=== PATIENT | female | born 1960 | race Caucasian/White ===

== ENCOUNTER 2017-03-03 19:01 | Emergency (ER) | payer OTHER, MEDICARE ==
[~2017-03-03] VITALS: Ht 154.9 cm; Wt 74.8 kg
[~2017-03-03 19:01] MED LIST: ACETAMINOPHEN-1 EAC3 PO
--- NOTE | 2017-03-03 19:45 | ED HAND/WRIST INJURY COMPLAINT ---
History of Present Illness General Chief Complaint: Hand or Wrist Injury Stated Complaint: LFT HAND INJURY Source: patient, old records Exam Limitations: no limitations Vital Signs & Intake/Output Vital Signs & Intake/Output Vital Signs Date Time Temp Pulse Resp B/P B/P Pulse O2 O2 Flow FiO2 Mean Ox Delivery Rate 03/03 2012 Room Air 03/03 1911 98.7 70 20 138/85 97 Room Air Allergies Coded Allergies: NSAIDS (Non-Steroidal Anti-Inflamma (RASH, BODY SWELLING, CP 03/03/17) aspirin (RASH ALL OVER, JOINT SWELLING, CP 03/03/17) chlorhexidine (BODY SWELLING AND ITCHING ALL OVER 03/03/17) cyanocobalamin (vitamin B12) (ANAPHYLAXIS 03/03/17) fentanyl (TAKES VISION AWAY AND MAKES, SICK, INCOHERENT SPEECH 03/03/17) meperidine (From DEMEROL) (SEIZURES 03/03/17) tramadol (SEIZURES 03/03/17) Uncoded Allergies: STEROID (RASH ALL OVER, BODY SWELLING, CP 07/30/16) Reconcile Medications Acetaminophen With Codeine (Acetaminophen-Cod #3 Tablet) 1 EACH TABLET 1 TAB PO BID PAIN (Reported) Triage Note: TRIAGE: PT TO ER C/C PAIN TO L HAND S/P INJURY 2 WEEKS AGO. PAIN IS CONSTANT SINCE ONSET. STATES SHE INJURED IT WHEN SHE TRIPPED WHILE HOLDING STUFF AND LANDED ON OUTER ASPECT OF HAND/WRIST. HAS HX OF SURGERY TO SAME FOREARM. STATES SHE HAS INTERMITTENT BLEEDING UNDER THE SKIN WITH ACTIVITY. TAKES TYLENOL WITH CODEINE BID AT BASELINE, STATES THIS HAS HELPED THE PAIN A LITTLE BIT. Triage Nurses Notes Reviewed? yes HPI: 2 weeks ago patient states that she was carrying something in both her hand when she lost her balance and fell forward. Patient hit the dorsal aspect of her left hand into a door frame. Patient denies hitting her head. Patient states that she did not fall to the ground. Patient has been having pain to the dorsal aspect of her left hand since then. The pain increases with use. The pain radiates into her wrist. The pain is throbbing in nature. Patient states that her hand is ecchymotic. At its worse the pain is 8 out of 10. With rest the pain goes down the 4 out of 10. Past History Travel History Traveled to [place] past 21 day No Medical History Any Pertinent Medical History? 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 No Review of Systems Review of Systems Constitutional: Reports: no symptoms. Respiratory: Reports: no symptoms. Cardiovascular: Reports: no symptoms. GI: Reports: no symptoms. Musculoskeletal: Reports: see HPI, joint pain. Skin: Reports: see HPI. Neurological/Psychological: Reports: no symptoms. Immunologic/Allergic: Reports: no symptoms. Physical Exam Physical Exam General Appearance: well developed/nourished, alert, awake, mild distress Eyes: Bilateral: PERRL, EOMI. Neck: normal inspection, supple, full range of motion, no midline tenderness Cardiovascular/Respiratory: normal breath sounds, normal peripheral pulses, regular rate/rhythm, no respiratory distress Wrist Left: normal range of motion, normal inspection, tenderness Hand Left: bone tenderness, ecchymosis, swelling Hand Right: normal inspection, normal range of motion Neurologic/Tendon: normal sensation, normal motor functions, normal tendon functions Progress Differential Diagnosis: contusion, fracture, sprain Plan of Care: Orders Procedure Date/time Status Durable Medical Equipment 03/03 2033 Active Diagnostic Imaging: Viewed by Me: Radiology Read. Discussed w/RAD: Radiology Read. Radiology Impression: PATIENT: MATTY PRESENT AGE: 56 PATIENT ACCOUNT NO: [id number] : 60 LOCATION: [facility] ORDERING PHYSICIAN: SOHNNA TURNER MD SERVICE DATE: 03/03/17 EXAM TYPE: RAD - XRY-HAND, LEFT EXAMINATION: XR HAND, LEFT CLINICAL INFORMATION: Fall, pain COMPARISON: None TECHNIQUE: AP, lateral, and oblique views of the left hand. FINDINGS: The bones and soft tissues are normal. No fracture. Alignment is anatomic. Joint spaces are maintained. No erosions or soft tissue calcifications. IMPRESSION: Unremarkable left hand. DICTATED BY: ANJEL PONCE MD DATE/TIME DICTATED:03/03/172014 DIRECTOR OF CASINO MARKETING:ZAMZAM DATE/TIME TRANSCRIBED:03/03/172014 CONFIDENTIAL, DO NOT COPY WITHOUT APPROPRIATE AUTHORIZATION. <Electronically signed in Other Vendor System> SIGNED BY: ANJEL PONCE MD 03/03/172023 Departure Departure Disposition: HOME OR SELF CARE Condition: Stable Clinical Impression Primary Impression: Hand contusion Qualifiers: Encounter type: initial encounter Laterality: left Qualified Code: S60.222A - Contusion of left hand, initial encounter Referrals: JEN QUIGLEY,CHERELLE Benson (PCP/Family) AMANDA REYNA MD Additional Instructions: WEAR SPLINT FOR COMFORT RETURN IF SYMPTOMS WORSEN OR FOR ANY CONCERNS FOLLOW UP WITH ORTHOPEDICS Departure Forms: Customer Survey General Discharge Information Procedures Splinting Location: LEFT WIRST/HAND Manual Alignment Performed: No Pre-Made Type: velcro Splint: wrist Splint Applied By: splint applied by other Pre-Proc Neuro Vasc Exam: normal Post-Proc Neuro Vasc Exam: normal
--- NOTE | 2017-03-03 20:24 | RADIOLOGY REPORT ---
EXAMINATION: XR HAND, LEFT CLINICAL INFORMATION: Fall, pain COMPARISON: None TECHNIQUE: AP, lateral, and oblique views of the left hand. FINDINGS: The bones and soft tissues are normal. No fracture. Alignment is anatomic. Joint spaces are maintained. No erosions or soft tissue calcifications. IMPRESSION: Unremarkable left hand.
[2017-03-03 20:47] VITALS: BP 128/78
== END 2017-03-03 20:47 ==
LOC: ERH 19:01
DX: S60.222A Contusion of left hand, initial encounter (principal); W19.XXXA Unspecified fall, initial encounter; Y93.89 Activity, other specified; Y92.9 Unspecified place or not applicable
CPT/HCPCS: 73130-LT

== ENCOUNTER 2018-06-22 12:15 | Emergency (ER) | payer OTHER, MEDICARE ==
[~2018-06-22] VITALS: Ht 154.9 cm; Wt 70.3 kg
[2018-06-22 12:21] VITALS: BP 131/84
--- NOTE | 2018-06-22 12:29 | ED HAND/WRIST INJURY COMPLAINT ---
History of Present Illness General Chief Complaint: Hand or Wrist Injury Stated Complaint: RIGHT HAND PAIN, WORK RELATED Source: patient Exam Limitations: no limitations Vital Signs & Intake/Output Vital Signs & Intake/Output Vital Signs Date Time Temp Pulse Resp B/P B/P Pulse O2 O2 Flow FiO2 Mean Ox Delivery Rate 06/22 1221 97.1 88 20 131/84 96 Room Air Allergies Coded Allergies: NSAIDS (Non-Steroidal Anti-Inflamma (RASH, BODY SWELLING, CP 03/03/17) aspirin (RASH ALL OVER, JOINT SWELLING, CP 03/03/17) chlorhexidine (BODY SWELLING AND ITCHING ALL OVER 03/03/17) cyanocobalamin (vitamin B12) (ANAPHYLAXIS 03/03/17) fentanyl (TAKES VISION AWAY AND MAKES, SICK, INCOHERENT SPEECH 03/03/17) meperidine (From DEMEROL) (SEIZURES 03/03/17) shellfish derived (SWELLING 06/22/18) tramadol (SEIZURES 03/03/17) Uncoded Allergies: STEROID (RASH ALL OVER, BODY SWELLING, CP 07/30/16) Reconcile Medications Acetaminophen With Codeine (Acetaminophen-Cod #3 Tablet) 1 EACH TABLET 1 TAB PO BID PAIN (Reported) Triage Note: PT TO ED C/O RIGHT HAND PAIN S/P HITTING IT ON A TRAY AT WORK 0700 THIS AM. WORKERS COMP FORM FILED. ICE APPLIED. DECLINING MEDS. Triage Nurses Notes Reviewed? yes Occurred: just prior to arrival Duration: hour(s):, constant Timing: single episode today Injury Environment: home Severity Numbers: 6 Pain/Injury Location: Right: Hand. Method of Injury: direct blow No Modifying Factors: none HPI: 57-year-old female comes into the emergency room for further evaluation of right hand pain. Patient reports that she was at work. She was trying to get some bagels off of that she and her hand flew backwards and hit one of the racks. She has pain and swelling. Comes in for further evaluation. Denies any fever chills vomiting. Denies any other system symptoms. (Aniceto Hernandez) Past History Travel History Traveled to [place] past 21 day No Medical History Any Pertinent Medical History? 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 No (Aniceto Hernandez) Review of Systems Review of Systems Constitutional: Reports: no symptoms. EENTM: Reports: no symptoms. Respiratory: Reports: no symptoms. Cardiovascular: Reports: no symptoms. GI: Reports: no symptoms. Genitourinary: Reports: no symptoms. Musculoskeletal: Reports: see HPI. Skin: Reports: no symptoms. Neurological/Psychological: Reports: no symptoms. Hematologic/Endocrine: Reports: no symptoms. Immunologic/Allergic: Reports: no symptoms. All Other Systems: Reviewed and Negative (Anicteo Hernandez) Physical Exam Physical Exam General Appearance: well developed/nourished, mild distress Head: atraumatic Eyes: Bilateral: normal appearance. Ears, Nose, Throat: normal ENT inspection, hearing grossly normal Neck: normal inspection Cardiovascular/Respiratory: no respiratory distress Back: normal inspection Hand Left: normal inspection Hand Right: limited range of motion, swelling, tender Neurologic/Tendon: normal sensation, normal motor functions, normal tendon functions, responds to pain, no evidence tendon injury, no pulse deficit Skin: intact, normal color, warm/dry (Aniceto Hernandez) Progress Differential Diagnosis: contusion, dislocation, fracture, sprain Plan of Care: Orders Procedure Date/time Status XRY-HAND, 3 View RIGHT 06/22 1224 Active Diagnostic Imaging: Viewed by Me: Radiology Read. Discussed w/RAD: Radiology Read. Comments: PATIENT: MATTYAPRIL PRESENT AGE: 57 PATIENT ACCOUNT NO: [id number] : 60 LOCATION: [facility] ORDERING PHYSICIAN: Aniceto GRIFFIN SERVICE DATE: 06/22/18-4 EXAM TYPE: RAD - XRY-HAND, RIGHT EXAMINATION: XR HAND, RIGHT CLINICAL INFORMATION: Right hand pain. Patient states pain from distal tip of third finger to mid forearm. COMPARISON: Contralateral left hand films dated 03/03/2017. Right hand films dated 07/23/2007. TECHNIQUE: PA, lateral, and oblique views of the right hand. FINDINGS: The patient declined removing the ring from the fourth finger, which partially obscures the proximal phalanx of the fourth digit. Remainder of the bony structures is well visualized and is all intact with no evidence of acute fracture or dislocation. There is mild joint space narrowing and spurring seen at the distal interphalangeal joints of all digits, consistent with mild osteoarthritic changes. No erosive change or soft tissue calcification is seen. There is mild periarticular osteopenia about the wrist and the metacarpophalangeal joints and interphalangeal joints of all digits. IMPRESSION: 1. No acute fracture or dislocation. 2. Mild degenerative changes in the DIP joints of all digits and mild diffuse periarticular osteopenia, consistent with osteoarthritis. DICTATED BY: Inessa Sims MD DATE/TIME DICTATED:06/22/181330 CADD TECHNICIAN:ZAMZAM DATE/TIME TRANSCRIBED:06/22/181330 CONFIDENTIAL, DO NOT COPY WITHOUT APPROPRIATE AUTHORIZATION. <Electronically signed in Other Vendor System> SIGNED BY: Inessa Sims MD [id number] (Aniceto Hernandez) Departure Departure Disposition: HOME OR SELF CARE Condition: Stable Clinical Impression Primary Impression: Contusion of right hand Additional Instructions: Ice. Rest. Follow-up with workman's comp/occupational medicine. Please go over all results of today's visit with your primary care doctor. Contact your primary care doctor to let them know you were here in the emergency room. There may be nonspecific findings which may not be related to your visit today here in the emergency room but may require further evaluation and chronic monitoring by your primary care doctor. If you had a laceration today the chance of foreign body always remains. You should follow-up with your primary care doctor for recheck in 3-5 days for a wound check. If you had an x-ray done there is a chance that a fracture could have been missed on initial read and you should follow-up with your primary care doctor for repeat x-rays if symptoms persist. If your blood pressure was elevated here in the emergency room please have rechecked by hyour primary care doctor within the next 48. If you were prescribed a narcotic here in the emergency room or any type of controlled substances you're not allowed to drive while taking this medication or operate any type of heavy machinery. Narcotics can make you feel lightheaded dizziness nausea and can cause constipation. You may need to order picker a stool softener. Thank you for choosing [facility] emergency room. Please return to the emergency room immediately if you have any other concerns worsening of symptoms. Departure Forms: Customer Survey General Discharge Information Industrial Accident Report Comments 06/22/2018 2:13:38 PM Likely looks well. Patient is no apparent distress. Nontoxic-appearing. No evidence of fracture. Follow-up with occupational medicine. Return if any other concerns worsening symptoms. Patient understands and agrees with plan of care. (Aaron GRIFFIN,Aniceto) PA/BATHING SUIT MAKER Co-Sign Statement Statement: ED Attending supervision documentation- [] I saw and evaluated the patient. I have also reviewed all the pertinent lab results and diagnostic results. I agree with the findings and the plan of care as documented in the PA's/BATHING SUIT MAKER's documentation. [X] I have reviewed the ED Record and agree with the PA's/BATHING SUIT MAKER's documentation. [] Additions or exceptions (if any) to the PAs/BATHING SUIT MAKER's note and plan are summarized below: [] (Rosa Maria QUIGLEY,Aydin Pedraza)
--- NOTE | 2018-06-22 13:39 | RADIOLOGY REPORT ---
EXAMINATION: XR HAND, RIGHT CLINICAL INFORMATION: Right hand pain. Patient states pain from distal tip of third finger to mid forearm. COMPARISON: Contralateral left hand films dated 03/03/2017. Right hand films dated 07/23/2007. TECHNIQUE: PA, lateral, and oblique views of the right hand. FINDINGS: The patient declined removing the ring from the fourth finger, which partially obscures the proximal phalanx of the fourth digit. Remainder of the bony structures is well visualized and is all intact with no evidence of acute fracture or dislocation. There is mild joint space narrowing and spurring seen at the distal interphalangeal joints of all digits, consistent with mild osteoarthritic changes. No erosive change or soft tissue calcification is seen. There is mild periarticular osteopenia about the wrist and the metacarpophalangeal joints and interphalangeal joints of all digits. IMPRESSION: 1. No acute fracture or dislocation. 2. Mild degenerative changes in the DIP joints of all digits and mild diffuse periarticular osteopenia, consistent with osteoarthritis.
== END 2018-06-22 14:19 ==
LOC: ERH 12:15
DX: S60.221A Contusion of right hand, initial encounter (principal); W22.8XXA Striking against or struck by other objects, initial encounter; Y92.89 Other specified places as the place of occurrence of the external cause; Y93.89 Activity, other specified
CPT/HCPCS: 73130-RT